=== PATIENT | male | born 1940 | race Hispanic/Latino ===

== ENCOUNTER 2017-05-03 14:06 | Emergency (ER) | payer SELFPAY ==
[2017-05-03] MEDS ORDERED: TDAP Vaccine 0.5 mL Syr IM ONE (15:51)
--- NOTE | 2017-05-03 16:37 | CT ---
PROCEDURE: CT HEAD WITHOUT CONTRAST. HISTORY: Trauma COMPARISON: None available. TECHNIQUE: Axial computed tomography images were obtained through the head/brain without intravenous contrast. Radiation dose: Total exam DLP = 834.76 mGy-cm. This CT exam was performed using one or more of the following dose reduction techniques: Automated exposure control, adjustment of the mA and/or kV according to patient size, and/or use of iterative reconstruction technique. FINDINGS: HEMORRHAGE: No intracranial hemorrhage. BRAIN: There are moderate chronic microangiopathic changes. There is no mass, mass effect or abnormal extra-axial fluid collection. VENTRICLES: There is mild age-related global parenchymal volume loss and proportionate enlargement of the ventricles and cortical sulci. CALVARIUM: The skull base and calvarium are normal. PARANASAL SINUSES: There is chronic mucosal thickening in the posterior ethmoid air cells. The remaining included paranasal sinuses are predominantly clear. MASTOID AIR CELLS: Predominantly clear. OTHER FINDINGS: None. IMPRESSION: No acute intracranial abnormality. Moderate chronic microangiopathic changes and mild age-related global parenchymal volume loss.
--- NOTE | 2017-05-03 16:43 | ED PDOC ---
HPI: Trauma/Fall - HPI Time Seen by Provider: 05/03/17 15:31 Chief Complaint (Nursing): Trauma Chief Complaint (Provider): Head Trauma History Per: Patient History/Exam Limitations: no limitations Additional Complaint(s): Aristides Lindsey, a 77 year old male, presents to the ED for head trauma, The patient states that prior to arrival he was on a ladder about 6 feet off the ground when he slipped and fell, causing him to hit his head against the wooden floor. Patient states he did not lose consciousness but he did sustain a laceration to the scalp. Past Medical History Reviewed: Historical Data, Nursing Documentation, Vital Signs Vital Signs: Last Vital Signs Temp 98.2 F 05/03/17 14:07 Pulse 100 H 05/03/17 14:07 Resp 16 05/03/17 14:07 BP 197/105 H 05/03/17 14:07 Pulse Ox 100 05/03/17 14:07 - Family History Family History: States: Unknown Family Hx - Home Medications Home Medications: Ambulatory Orders Medication Instructions Recorded Cephalexin [cephalexin] 500 mg PO Q6 #28 cap 05/03/17 - Allergies Allergies/Adverse Reactions: Allergies Allergy/AdvReac Type Severity Reaction Status Date / Time No Known Allergies Allergy Verified 05/03/17 14:07 Review of Systems Constitutional: Positive for: Other (Laceration to the scalp.) Neurological: Positive for: Other (Denies loss of consciousness.) Physical Exam - Reviewed Nursing Documentation Reviewed: Yes Vital Signs Reviewed: Yes - Physical Exam Appears: Positive for: Non-toxic, No Acute Distress Head Exam: Positive for: NORMAL INSPECTION (4 inch C-shaped laceration to the scalp.), NORMOCEPHALIC Skin: Positive for: Normal Color, Warm, Dry Eye Exam: Positive for: Normal appearance, EOMI, PERRL ENT: Positive for: Normal ENT Inspection Neck: Positive for: Normal, Painless ROM, Supple Cardiovascular/Chest: Positive for: Regular Rate, Rhythm, Chest Non Tender. Negative for: Tachycardia Respiratory: Positive for: Normal Breath Sounds. Negative for: Wheezing, Respiratory Distress Gastrointestinal/Abdominal: Positive for: Normal Exam, Bowel Sounds, Soft. Negative for: Tenderness, Guarding, Rebound Back: Positive for: Normal Inspection. Negative for: L CVA Tenderness, R CVA Tenderness Extremity: Positive for: Normal ROM. Negative for: Tenderness, Deformity, Swelling Neurologic/Psych: Positive for: Alert, Oriented, Gait - ECG O2 Sat by Pulse Oximetry: 100 (RA) Pulse Ox Interpretation: Normal - Progress ED Course And Treament: CT head w/o contrast: no acute abnormality CT cervical w/o contrast: no fx Repeat BP: 154/98 Medical Decision Making Medical Decision Makin:31 Initial Impression: 77 year old male presenting with head trauma and a laceration to the scalp Initial Plan: * CT Cervical Spine w/o Contrast * CT Head w/o comtrast, Boostrix 0.5ml IMH * Reevaluation Scribe Attestation: Documented by Denise Pa acting as a scribe for Mikal Sands PA-C. MD Scribe Attestation: All medical record entries made by the Scribe were at my direction and personally dictated by me. I have reviewed the chart and agree that the record accurately reflects my personal performance of the history, physical exam, medical decision making, and the department course for this patient. I have also personally directed, reviewed, and agree with the discharge instructions and disposition. Procedures - Time-Out Type of Procedure: Laceration repair Site of Procedure: scalp Correct Patient (with visual ID + MR# on ID Band): Yes Correct Procedure: Yes Correct Site Marked: Yes PA/Tech: [place] - Laceration/Wound Repair Laceration Wound Length (cm): 10 Wound's Depth, Shape: superficial, irregular Wound Explored: foreign body removed (hair) Irrigated w/ Saline (ccs): 600 Betadine Prep?: Yes Anesthesia: Lidocaine w/ Epi Volume Anesthetic (ccs): 10 Wound Repaired With: [place] (12) Wound Complexity: Intermediate Disposition - Clinical Impression Clinical Impression: Head injury, Scalp laceration - Patient ED Disposition Is Patient to be Admitted: No - Disposition Disposition: Routine/Home Disposition Time: 18:34 Condition: STABLE Additional Instructions: Staple removal in 7 days. Prescriptions: Cephalexin [cephalexin] 500 mg PO Q6 #28 cap Instructions: Head Injury (ED), Staple Care (ED) Print Language: [place]AST [place]
--- NOTE | 2017-05-03 17:26 | CT ---
PROCEDURE: CT Cervical Spine without contrast HISTORY: <trauma> COMPARISON: None available. TECHNIQUE: Axial computed tomography images were obtained of the cervical spine without the use of intravenous contrast. Coronal and sagittal reformatted images were created and reviewed. Radiation dose: Total exam DLP = 472.80 mGy-cm. This CT exam was performed using one or more of the following dose reduction techniques: Automated exposure control, adjustment of the mA and/or kV according to patient size, and/or use of iterative reconstruction technique. FINDINGS: VERTEBRAE: No fracture. Normal alignment. No destructive bony lesion. DISCS/SPINAL CANAL/NEURAL FORAMINA: Degenerative changes primarily lower cervical spine C5-6 and to greater extent C6-7. Hypertrophic bar formation at C6-7 without evidence of canal stenosis. Multilevel uncovertebral hypertrophy. PARASPINAL SOFT TISSUES: Unremarkable. OTHER FINDINGS: None. IMPRESSION: No acute findings related to/accounting for the clinical presentation. Multilevel degenerative changes.
[2017-05-03] MEDS ORDERED: Lidocaine 2% w Epi 1:100,000 Inj IJ ONE (17:28)
[2017-05-03] MEDS ORDERED: Lidocaine/Epi 1% 1:100000 20 ML IJ ONE (17:32)
[2017-05-03 19:19] VITALS: BP 128/76; PULSE 78; RESP 20; TEMP 97.6; O2SAT 98
== END 2017-05-03 19:19 | disposition home or self-care (01) ==
LOC: H.ER 14:06
DX: S09.90XA Unspecified injury of head, initial encounter (principal); S01.01XA Laceration without foreign body of scalp, initial encounter; W11.XXXA Fall on and from ladder, initial encounter; Y92.89 Other specified places as the place of occurrence of the external cause